=== PATIENT | male | born 1960 | race Two or more races ===

== ENCOUNTER 2019-01-19 09:40 | Inpatient (IN) | payer MEDICARE, MEDICAID ==
[~2019-01-19] VITALS: Ht 175.3 cm; Wt 117.9 kg
[2019-01-19] MEDS ORDERED: BUPIVACAINE/EPINEPH/PF 0.25%/0.0005 10ML ONE ×3 (11:29→16:28)
[2019-01-19] MEDS ORDERED: MORPHINE SULFATE/PF 1MG/ML 10ML AMP ONE (11:29)
[2019-01-19] MEDS ORDERED: BACITRACIN 50,000 UNITS/VIAL ONE (11:30)
[2019-01-19] MEDS ORDERED: VANCOMYCIN HCL 500 MG/VIAL ONE (11:30)
[2019-01-19] MEDS ORDERED: BUPIVACAINE HCL/PF 0.25% (2.5MG/ML) 10ML ONE (11:30)
[2019-01-19] MEDS ORDERED: NORMAL SALINE 0.9% 10 ML SYR ONE (11:30)
[2019-01-19] MEDS ORDERED: EPINEPHRINE 1:1000 1 MG/ML AMP ONE (11:30)
[2019-01-19] MEDS ORDERED: GENTAMICIN SULF 40MG/ML 2ML VIAL ONE (11:30)
[2019-01-19] MEDS ORDERED: GEMF600T4 PO (11:45)
[2019-01-19] MEDS ORDERED: HYDR-4009 PO (11:45)
[2019-01-19] MEDS ORDERED: CYCL10TA7 PO (11:45)
[2019-01-19] MEDS ORDERED: GABA-290 PO (11:45)
[2019-01-19] MEDS ORDERED: LEVO200T8 PO (11:45)
[2019-01-19] MEDS ORDERED: METF-414 PO (11:45)
[2019-01-19] MEDS ORDERED: ALBU18HF2 IH (11:45)
[2019-01-19] MEDS ORDERED: PROP10TA10 PO (11:45)
[2019-01-19] MEDS ORDERED: ROPIVACAINE HCL 10MG/ML 20 ML VIAL EPI ONE (14:30)
[2019-01-19] MEDS ORDERED: GLYCOPYRROLATE 0.2 MG/ML 2ML VIAL ONE (15:05)
[2019-01-19] MEDS ORDERED: SUCCINYLCHOLINE CHLORIDE 200MG/10ML IV ONE (15:05)
[2019-01-19] MEDS ORDERED: NEOSTIGMINE METHYLSULFATE 1MG/ML 10 ML VIAL ONE (15:05)
[2019-01-19] MEDS ORDERED: EPHEDRINE SULFATE 50MG/ML VIAL ONE (15:05)
[2019-01-19] MEDS ORDERED: METOCLOPRAMIDE HCL 10MG/2ML VIAL ONE (15:05)
[2019-01-19] MEDS ORDERED: ROCURONIUM BROMIDE 10MG/ML VIAL 5ML IV ONE (15:05)
[2019-01-19] MEDS ORDERED: FENTANYL CITRATE/PF 50MCG/ML 2ML VIAL ONE (15:05)
[2019-01-19] MEDS ORDERED: LIDOCAINE HCL/PF 1% 10 MG/ML 5ML VIAL ONE (15:05)
[2019-01-19] MEDS ORDERED: CEFAZOLIN SODIUM 1000MG/VIAL ONE (15:05)
[2019-01-19] MEDS ORDERED: SODIUM CHLORIDE 0.9% 10ML VIAL ONE (15:05)
[2019-01-19] MEDS ORDERED: ONDANSETRON HCL 4MG/2ML INJ ONE (15:05)
[2019-01-19] MEDS ORDERED: DEXAMETHASONE 4MG/ML 1ML VIAL ONE (15:05)
[2019-01-19] MEDS ORDERED: PHENYLEPHRINE HCL 10 MG/ML 1ML (IV VIAL) IV ONE (15:05)
[2019-01-19] MEDS ORDERED: PROPOFOL 200MG/20ML VIAL IV ONE (15:05)
[2019-01-19] MEDS ORDERED: MIDAZOLAM HCL 2 MG/2 ML VIAL ONE (15:05)
[2019-01-19] MEDS ORDERED: ALBUTEROL 6.7GM HFA INHALER ORI ONE (18:30)
[2019-01-19] MEDS ORDERED: ONDANSETRON HCL 4MG/2ML INJ IV PRN ×2 (18:30)
[2019-01-19] MEDS ORDERED: MAGNESIUM HYDROXIDE 400MG/5ML 30ML UDC PO PRN (18:30)
[2019-01-19] MEDS ORDERED: HYDROCODONE/ACETAMINOPHEN 10/325MG TABLET PO PRN (18:30)
[2019-01-19] MEDS ORDERED: HYDROMORPHONE HCL/PF 2MG/ML CPJ IV PRN ×2 (18:30)
[2019-01-19] MEDS ORDERED: ACETAMINOPHEN 325MG TABLET PO PRN (18:30)
[2019-01-19 21:30] VITALS: BP 167/90
[2019-01-19] MEDS ORDERED: ZOLPIDEM TARTRATE 5MG TABLET PO PRN (22:00)
[2019-01-19 22:23] VITALS: BP 167/90
[2019-01-19] MEDS: CEFAZOLIN 2,000 MG in DEXT 5% WATER 100 ML IV SCH (23:45)
[2019-01-20] VITALS: BP 149/86
[2019-01-20] MEDS: HYDROMORPHONE HCL/PF 2MG/ML CPJ IV PRN (03:38)
[2019-01-20 04:00] VITALS: BP 136/74
[2019-01-20] MEDS: CEFAZOLIN 2,000 MG in DEXT 5% WATER 100 ML IV SCH (07:31)
[2019-01-20 08:00] VITALS: BP 146/77
[2019-01-20] MEDS: HYDROCODONE/ACETAMINOPHEN 10/325MG TABLET PO PRN ×3 (08:59→21:29)
[2019-01-20] MEDS: DOCUSATE SODIUM 100MG CAPSULE PO SCH ×2 (09:00→18:03)
[2019-01-20 12:00] VITALS: BP 134/78
[2019-01-20 16:00] VITALS: BP 145/76
[2019-01-20 20:00] VITALS: BP 128/69
[2019-01-20] MEDS: LEVOTHYROXINE SODIUM 200MCG TABLET PO SCH (21:00)
[2019-01-20] MEDS: GABAPENTIN 100MG CAPSULE PO SCH (21:27)
[2019-01-20] MEDS: NICOTINE 7MG PATCH TD SCH (21:28)
[2019-01-20] MEDS: PROPRANOLOL HCL 10MG TABLET PO SCH (21:28)
[2019-01-21] VITALS: BP 126/70
[2019-01-21] MEDS: HYDROMORPHONE HCL/PF 2MG/ML CPJ IV PRN (00:27)
[2019-01-21 04:00] VITALS: BP 123/71
[2019-01-21 06:22] LABS: BASOPHILS % 0.2 % (0.0-2.0); EOSINOPHILS % 1.3 % (0.0-5.0); HEMATOCRIT. 40.2 % (42.0-52.0); HEMOGLOBIN. 13.6 g/dL (14.0-18.0); LYMPHOCYTES % 32.5 % (20.0-50.0); MEAN CORPUSCULAR HEMOGLOBIN 29.3 pg (28.0-32.0); MEAN CORPUSCULAR VOLUME 86.8 fL (80.0-94.0); MEAN PLATELET VOLUME 9.4 fl (7.4-10.4); MONOCYTES % 12.4 % (2.0-8.0); NEUTROPHILS % 53.6 % (40.0-76.0); PLATELET 194 x1000/uL (130-400); RED BLOOD CELL COUNT 4.63 mill/uL (4.7-6.1); RED CELL DISTRIBUTION WIDTH 13.4 % (11.6-14.6)
[2019-01-21 06:43] LABS: CHLORIDE 101 mEq/L (98-107)
[2019-01-21] MEDS: LEVOTHYROXINE SODIUM 200MCG TABLET PO SCH (06:51)
[2019-01-21] MEDS: GABAPENTIN 100MG CAPSULE PO SCH (06:51)
[2019-01-21 06:52] LABS: LDL CHOLESTEROL 99 mg/dL (5-100)
[2019-01-21 06:55] LABS: HDL CHOLESTEROL 55 mg/dL (40-59)
[2019-01-21] MEDS: HYDROCODONE/ACETAMINOPHEN 10/325MG TABLET PO PRN (06:56)
[2019-01-21] MEDS ORDERED: METFORMIN HCL 500MG TABLET PO SCH (07:50)
[2019-01-21] MEDS ORDERED: GEMFIBROZIL 600MG TABLET PO SCH (07:50)
[2019-01-21 08:00] VITALS: BP 154/84
[2019-01-21] MEDS: NICOTINE 7MG PATCH TD SCH (09:11)
[2019-01-21] MEDS: PROPRANOLOL HCL 10MG TABLET PO SCH (09:12)
[2019-01-21] MEDS: DOCUSATE SODIUM 100MG CAPSULE PO SCH (09:13)
[2019-01-21 09:45] VITALS: BP 154/84
== END 2019-01-21 10:42 | disposition home or self-care (01) | DRG 512 ==
LOC: OR 09:40 → 6EST 21:27
PROVIDERS: ADMIT Orthopaedic Surgery; ATTEND Orthopaedic Surgery
PROC: 0RBK4ZZ Excision of Left Shoulder Joint, Percutaneous Endoscopic Approach (ICD-10-PCS; principal; 2019-01-19)
PROC: 0PBB4ZZ Excision of Left Clavicle, Percutaneous Endoscopic Approach (ICD-10-PCS; 2019-01-19)
PROC: 0LQ24ZZ Repair Left Shoulder Tendon, Percutaneous Endoscopic Approach (ICD-10-PCS; 2019-01-19)
PROC: 0RNK4ZZ Release Left Shoulder Joint, Percutaneous Endoscopic Approach (ICD-10-PCS; 2019-01-19)
DX: M75.112 Incomplete rotator cuff tear or rupture of left shoulder, not specified as traumatic (principal); M75.121 Complete rotator cuff tear or rupture of right shoulder, not specified as traumatic; M75.20 Bicipital tendinitis, unspecified shoulder; M75.42 Impingement syndrome of left shoulder; S43.432A Superior glenoid labrum lesion of left shoulder, initial encounter; S43.492A Other sprain of left shoulder joint, initial encounter; M65.9 Synovitis and tenosynovitis, unspecified; M19.012 Primary osteoarthritis, left shoulder; K43.9 Ventral hernia without obstruction or gangrene; J44.9 Chronic obstructive pulmonary disease, unspecified; I10 Essential (primary) hypertension; F17.210 Nicotine dependence, cigarettes, uncomplicated; G89.29 Other chronic pain; F12.90 Cannabis use, unspecified, uncomplicated; X58.XXXA Exposure to other specified factors, initial encounter; E78.5 Hyperlipidemia, unspecified; E66.01 Morbid (severe) obesity due to excess calories; E11.9 Type 2 diabetes mellitus without complications; E03.9 Hypothyroidism, unspecified; M75.122 Complete rotator cuff tear or rupture of left shoulder, not specified as traumatic; Z79.890 Hormone replacement therapy; Z79.84 Long term (current) use of oral hypoglycemic drugs; Z68.38 Body mass index [BMI] 38.0-38.9, adult; Y93.89 Activity, other specified; Y92.89 Other specified places as the place of occurrence of the external cause; Y99.8 Other external cause status; Z79.51 Long term (current) use of inhaled steroids; Z79.899 Other long term (current) drug therapy
CPT/HCPCS: 36415; 80048; 80061; 82962; 83735; 84100; 84443; 88304; 88311; 97166; A4565; C1713; J0171; J0330; J0690; J1100; J1170; J1580; J2250; J2274; J2370; J2405; J2704; J2710; J2765; J2795; J3010; J3370; J3490; J7050; J7060; J7611